=== PATIENT | male | born 1960 | race American Indian/Alaskan Native ===

== ENCOUNTER 2018-12-13 18:53 | Inpatient (IN) | payer SELFPAY ==
--- NOTE | 2018-12-13 20:14 | Emergency Department Report ---
ED Chest Pain HPI - General Chief Complaint: Chest Pain Stated Complaint: CHEST PAIN Time Seen by Provider: 12/13/18 19:31 Source: EMS Mode of arrival: Stretcher Limitations: No Limitations - History of Present Illness Initial Comments: 58-year-old male with history of CAD with 2 stents presents to ED with chest pain since earlier today. Patient reports onset of pain while reading. States pain is radiating into the right arm with associated nausea, diaphoresis, shortness of breath. Patient states he is from [place] and recently came to [place] a few days ago. [facility] has no physicians here. Patient reports that he is on a blood thinner, however he does not know the name of it, and there are no blood thinners in his bag of medications. Patient states pain feels like a hammer, rates it 9 out of 10, however patient appears very comfortable, nontoxic. -: This morning Onset: during rest Pain Location: substernal Pain Radiation: RUE Severity: moderate Severity scale (0 -10): 9 Quality: other ("like a hammer") Consistency: constant Improves With: nothing Worsens With: nothing re: nausea, vomting, diaphoresis, dyspnea Other Symptoms: denies: cough, fever, leg swelling Treatments Prior to Arrival: none - Related Data Home Medications Medication Instructions Recorded Confirmed Last Taken FLUoxetine [PROzac] 10 mg PO QDAY 12/13/18 12/13/18 Unknown Lisinopril [Zestril] 40 mg PO DAILY 12/13/18 12/13/18 Unknown Pravastatin [Pravachol] 20 mg PO DAILY 12/13/18 12/13/18 Unknown guaiFENesin [Mucinex] 600 mg PO PRN PRN 12/13/18 12/13/18 Unknown traZODone [Desyrel] 50 mg PO QHS 12/13/18 12/13/18 Unknown Allergies Allergy/AdvReac Type Severity Reaction Status Date / Time aspirin Allergy Itching Verified 12/13/18 20:08 Heart Score - HEART Score History: Slightly suspicious EKG: Normal Age: 45-65 Risk factors: > 3 risk factors or hx of atherosclerotic disease Troponin: < normal limit HEART Score: 3 ED Review of Systems ROS: Stated complaint: CHEST PAIN Other details as noted in HPI Comment: All other systems reviewed and negative Respiratory: shortness of breath. denies: cough Cardiovascular: chest pain Gastrointestinal: nausea ED Past Medical Hx - Past Medical History Previous Medical History?: Yes Hx Heart Attack/AMI: Yes (SD with 2 stents) Additional medical history: Parkinson - Surgical History Past Surgical History?: Yes Additional Surgical History: two stents, tonsilectomy - Social History Smoking Status: Never Smoker Substance Use Type: None - Medications Home Medications: Home Medications Medication Instructions Recorded Confirmed Last Taken Type FLUoxetine [PROzac] 10 mg PO QDAY 12/13/18 12/13/18 Unknown History Lisinopril [Zestril] 40 mg PO DAILY 12/13/18 12/13/18 Unknown History Pravastatin [Pravachol] 20 mg PO DAILY 12/13/18 12/13/18 Unknown History guaiFENesin [Mucinex] 600 mg PO PRN PRN 12/13/18 12/13/18 Unknown History traZODone [Desyrel] 50 mg PO QHS 12/13/18 12/13/18 Unknown History ED Physical Exam - General Limitations: No Limitations General appearance: alert, in no apparent distress - Head Head exam: Present: atraumatic, normocephalic - Eye Eye exam: Present: normal appearance - ENT ENT exam: Present: mucous membranes moist - Neck Neck exam: Present: normal inspection - Respiratory Respiratory exam: Present: normal lung sounds bilaterally. Absent: respiratory distress - Cardiovascular Cardiovascular Exam: Present: regular rate, normal rhythm - GI/Abdominal GI/Abdominal exam: Present: soft. Absent: distended, tenderness - Extremities Exam Extremities exam: Present: normal inspection - Neurological Exam Neurological exam: Present: alert, oriented X3 - Psychiatric Psychiatric exam: Present: normal affect, normal mood - Skin Skin exam: Present: warm, dry, intact, normal color ED Course Vital Signs 12/13/18 12/13/18 12/13/18 19:45 20:00 21:00 Temperature 98.6 F Pulse Rate 60 63 54 L Respiratory 15 15 15 Rate Blood Pressure 126/78 139/88 Blood Pressure 126/78 [Left] O2 Sat by Pulse 98 98 99 Oximetry 12/13/18 12/13/18 21:43 22:00 Temperature Pulse Rate 58 L 62 Respiratory 21 Rate Blood Pressure 139/88 145/97 Blood Pressure [Left] O2 Sat by Pulse 98 Oximetry ED Medical Decision Making - Lab Data Result diagrams: 12/13/18 20:24 12/13/18 20:24 - EKG Data -: EKG Interpreted by [place] EKG shows normal: sinus rhythm, axis, intervals, QRS complexes, ST-T waves Rate: bradycardia (rate 56) - EKG Data Interpretation: no acute changes - Radiology Data Radiology results: report reviewed, image reviewed CXR results faxed: no acute process Reports not crossing over into [employer] - Medical Decision Making 58-year-old male with history of coronary artery disease with 2 stents presents with chest pain 1 day. EKG normal, troponin normal. Unable to give aspirin due to allergy. Patient given nitroglycerin sublingual. Chest pain improved. Patient has no physicians here as he is new to the city. Will admit to hospitalist, Dr. Holly, for further workup. Bridge orders placed at request of the hospitalist. - Differential Diagnosis ACS, pneumonia, chest wall pain Critical care attestation.: If time is entered above; I have spent that time in minutes in the direct care of this critically ill patient, excluding procedure time. ED Disposition Clinical Impression: Chest pain Disposition: OP ADMIT IP TO THIS HOSP Is pt being admited?: Yes Condition: Stable Instructions: Chest Pain (ED) Referrals: SAMIA DIAZ MD [Primary Care Provider] - 3-5 Days Time of Disposition: 22:26
[2018-12-13 20:42] LABS: Basophils # (Auto) 0.1 K/mm3 (0.0-0.1); Basophils % (Auto) 1.2 % (0.0-1.8); Eosinophils # (Auto) 0.3 K/mm3 (0.0-0.4); Eosinophils % (Auto) 4.1 % (0.0-4.3); Hematocrit 42.7 % (35.5-45.6); Hemoglobin 13.8 gm/dl (11.8-15.2); Lymphocytes # (Auto) 1.9 K/mm3 (1.2-5.4); Mean Corpuscular HGB Conc 32 % (32-34); Mean Corpuscular Volume 83 fl (84-94); Monocytes # (Auto) 0.5 K/mm3 (0.0-0.8); Platelet Count 383 K/mm3 (140-440); Red Blood Count 5.15 M/mm3 (3.65-5.03); Red Cell Distribution Width 15.3 % (13.2-15.2)
[2018-12-13 20:53] LABS: INR 1.12 (0.87-1.13); Partial Thromboplastin Time 24.5 Sec. (24.2-36.6)
[2018-12-13 21:10] LABS: BUN/Creatinine Ratio 13; Blood Urea Nitrogen 14 mg/dL (9-20); Calcium 9.2 mg/dL (8.4-10.2); Hemolysis Index 11
[2018-12-13] MEDS ORDERED: NITROSTAT SL ONE (21:23)
[2018-12-13] MEDS ORDERED: ZOFRAN IV PRN (23:04)
[2018-12-13] MEDS ORDERED: MORPHINE IV PRN (23:04)
[2018-12-13] MEDS ORDERED: NITROSTAT SL PRN (23:06)
[2018-12-13] MEDS ORDERED: NITRO-BID 2% TP SCH (23:45)
[2018-12-14] MEDS ORDERED: HEPARIN ONE (00:05)
[2018-12-14] MEDS ORDERED: NITRO-BID 2% TP ONE (00:06)
[2018-12-14] MEDS: NITRO-BID 2% TP SCH ×2 (00:09→06:47)
[2018-12-14] MEDS: HEPARIN SUB-Q SCH ×3 (00:09→23:54)
--- NOTE | 2018-12-14 04:13 | History and Physical Report ---
CHIEF COMPLAINT: Chest pain. HISTORY OF PRESENT ILLNESS: The patient is a 58-year-old male with history of coronary artery disease, presenting with chest pain going on for some hours prior to presentation. Pain started while the patient was reading and pain radiates to the right arm and was associated with shortness of breath, nausea, vomiting, dizziness and diaphoresis. The patient described the pain as moderately tense and pressure-like in quality and consistent. Pain is not affected by movement or breathing. There are no symptoms of cough or fever. PAST MEDICAL HISTORY: Pertinent for coronary artery disease, status post myocardial infarction. Also, the patient has a past history of Parkinson's disease and past surgical history is pertinent for coronary stent placement x2 and tonsillectomy, hypercholesterolemia and depression. FAMILY HISTORY: Pertinent for coronary artery disease in the mother. SOCIAL HISTORY: The patient does not smoke, does not drink alcohol and does not use illicit drugs. MEDICATIONS: The patient is on lisinopril 40 mg daily, pravastatin 20 mg daily, Mucinex 600 mg by mouth every 12 hours as needed for cough, trazodone 50 mg at bedtime for insomnia, Prozac 10 mg by mouth daily. ALLERGIES: THE PATIENT IS ALLERGIC TO ASPIRIN. REVIEW OF SYSTEMS: CONSTITUTIONAL: There is no fever, no chills. Diaphoresis present. HEENT: There is no headache. No sore throat. CARDIOVASCULAR SYSTEM: There is chest pain, but no orthopnea. RESPIRATORY SYSTEM: There is shortness of breath, but no cough. GASTROINTESTINAL SYSTEM: There is nausea, vomiting. No abdominal pain, no diarrhea or constipation. NEUROLOGICAL SYSTEM: Dizziness present. No altered mental status. MUSCULOSKELETAL SYSTEM: There is no joint pain or swelling. DERMATOLOGICAL SYSTEM: There is no skin rash or itching. GENITOURINARY SYSTEM: There is no dysuria, hematuria or flank pain. Rest of system review is normal. PHYSICAL EXAMINATION: GENERAL: At the time of exam, the patient was found to be alert, oriented x 3 and not in acute distress. VITAL SIGNS: Vital signs at the initial time of presentation shows temperature of 98.6 degrees Fahrenheit, pulse of 60, respirations 15, blood pressure 126/78, O2 sat of 98% on room air. HEENT: Pupils to be equal, round, reactive to light and accommodating. Extraocular muscles are intact. NECK: Supple with no JVD or carotid bruit. CARDIOVASCULAR: Show normal first and second heart sounds with no gallops or murmurs. RESPIRATORY SYSTEM: Show good air entry on both sides of the lung with no abnormal breath sounds. GASTROINTESTINAL SYSTEM: Show abdomen to be full, soft, nontender with no organomegaly or rigidity. Bowel sound is normal. NEUROLOGICAL SYSTEM: Shows no focal deficit. MUSCULOSKELETAL SYSTEM: Show no joint swelling or tenderness. DERMATOLOGICAL SYSTEM: Show no skin rash. GENITOURINARY SYSTEM: Showing no costovertebral angle tenderness. PERTINENT LABORATORY AND IMAGING STUDIES: The patient had chest x-ray done that shows no acute cardiopulmonary lesion and the patient lab results shows CBC with normal white count, normal hemoglobin and normal hematocrit with CBC differential showing high monocyte count of 8%. The patient's coagulation studies were unremarkable and chemistry was unremarkable. Cardiac enzymes, troponin came back unremarkable. DIAGNOSES: Chest pain, rule out myocardial infarction. PLAN OF ACTION: 1. The patient will be admitted to telemetry. 2. The patient will have cardiac enzymes involving troponin, total CK and CK-MB checked every 6 hours serially x 2 doses. 3. The patient will be n.p.o. and will have Lexiscan stress test done this morning. 4. The patient will be on morphine 2 mg IV every 5 minutes as needed for pain and nitro paste 1 inch to anterior chest wall q. 6 hours. 5. The patient will be on sublingual nitroglycerin 0.4 mg every 5 minutes as needed for pain and will be on IV Zofran 4 mg every 8 hours as needed for nausea and vomiting. 6. The patient will be on Tylenol 650 mg by mouth every 4 hours for fever and headache and will be on heparin 5000 units subcutaneous q. 12 hours for DVT prophylaxis. 7. The patient will be on oxygen by nasal cannula at 2 liter per minute. 8. The patient will remain n.p.o. for Lexiscan stress test this morning. JOB# [id number] OCN/NTS
[2018-12-14 06:57] LABS: Creatine Kinase MB 1.9 ng/mL (0.0-4.0)
[2018-12-14] MEDS ORDERED: LEXISCAN IV ONE ×2 (08:08→08:28)
[2018-12-14] MEDS ORDERED: ZESTRIL PO SCH (10:00)
[2018-12-14] MEDS ORDERED: NITRO-BID 2% TP SCH (10:00)
--- NOTE | 2018-12-14 11:54 | Consultation ---
History of Present Illness Consult date: 12/14/18 Consult reason: chest pain History of present illness: 58 year old male presenting with chest pain radiating to the right arm associated with shortness of breath, nausea, diaphoresis. Pain is pressure like. Pain is non-exertional. History of PCI in [place] in the setting of [place]. No follow-up in [place] Past History Past Medical History: CAD, hyperlipidemia, other (Parkinson disease, depression) Past Surgical History: tonsillectomy, PTCA Social history: no significant social history Family history: CAD Medications and Allergies Allergies Allergy/AdvReac Type Severity Reaction Status Date / Time aspirin Allergy Itching Verified 12/13/18 20:08 Home Medications Medication Instructions Recorded Confirmed Last Taken Type FLUoxetine [PROzac] 10 mg PO QDAY 12/13/18 12/13/18 Unknown History Lisinopril [Zestril] 40 mg PO DAILY 12/13/18 12/13/18 Unknown History Pravastatin [Pravachol] 20 mg PO DAILY 12/13/18 12/13/18 Unknown History guaiFENesin [Mucinex] 600 mg PO PRN PRN 12/13/18 12/13/18 Unknown History traZODone [Desyrel] 50 mg PO QHS 12/13/18 12/13/18 Unknown History Active Meds: Active Medications Acetaminophen (Tylenol) 650 mg PO Q4H PRN PRN Reason: Headache Fluoxetine HCl (Prozac) 10 mg PO QDAY [facility] Heparin Sodium (Porcine) (Heparin) 5,000 unit SUB-Q Q12H [facility] Last Admin: 12/14/18 00:09 Dose: 5,000 unit Documented by: Lisinopril (Zestril) 40 mg PO DAILY [facility] Morphine Sulfate (Morphine) 2 mg IV Q5MIN PRN PRN Reason: Chest Pain unrelieved by NTG Nitroglycerin (Nitrostat) 0.4 mg SL .Q5MIN PRN PRN Reason: Chest Pain Nitroglycerin (Nitro-Bid 2%) 1 inch TP QIDNTG [facility]; Protocol Ondansetron HCl (Zofran) 4 mg IV Q8H PRN PRN Reason: Nausea And Vomiting Pravastatin Sodium (Pravachol) 20 mg PO QHS [facility] Trazodone HCl (Desyrel) 50 mg PO QHS [facility] Review of Systems All systems: negative Physical Examination Vital Signs Temp Pulse Resp BP Pulse Ox 98.6 F 60 15 126/78 98 12/13/18 19:45 12/13/18 19:45 12/13/18 19:45 12/13/18 19:45 12/13/18 19:45 General appearance: no acute distress HEENT: Positive: PERRL Neck: Positive: neck supple Cardiac: Positive: Reg Rate and Rhythm Lungs: Positive: Normal Exam Neuro: Positive: Grossly Intact Abdomen: Positive: Soft Extremities: Present: normal Results 12/13/18 20:24 12/13/18 20:24 Cardiac Enzymes 12/14/18 12/14/18 Range/Units 03:43 06:04 CK-MB (CK-2) 2.0 1.9 (0.0-4.0) ng/mL Coagulation 12/13/18 Range/Units 20:24 PT 15.1 H (12.2-14.9) Sec. INR 1.12 (0.87-1.13) APTT 24.5 (24.2-36.6) Sec. CBC 12/13/18 Range/Units 20:24 WBC 6.4 (4.5-11.0) K/mm3 RBC 5.15 H (3.65-5.03) M/mm3 Hgb 13.8 (11.8-15.2) gm/dl Hct 42.7 (35.5-45.6) % Plt Count 383 (140-440) K/mm3 Lymph # 1.9 (1.2-5.4) K/mm3 [place] # 0.5 (0.0-0.8) K/mm3 Eos # 0.3 (0.0-0.4) K/mm3 Baso # 0.1 (0.0-0.1) K/mm3 Comprehensive Metabolic Panel 12/13/18 Range/Units 20:24 Sodium 145 (137-145) mmol/L Potassium 4.2 (3.6-5.0) mmol/L Chloride 105.9 (98-107) mmol/L Carbon Dioxide 31 H (22-30) mmol/L BUN 14 (9-20) mg/dL Creatinine 1.1 (0.8-1.5) mg/dL Glucose 98 (75-100) mg/dL Calcium 9.2 (8.4-10.2) mg/dL - EKG Interpretation EKG: sinus rhythm EKG interpretations - Telemetry EKG Rhythm: Sinus Rhythm Assessment and Plan Chest Pain Abnormal MPI revealing a reverisble mid anteroseptal wall defect suggesting LAD ischemia Troponin negative CAD s/p PCI in [place] after [place] Hyperlipidemia Systemic Hypertension Recommendations: Plavix loading (patient allergic to aspirin) High intensity statins Anti-anginal therapy Coronary angio on sunday
[2018-12-14] MEDS: PLAVIX PO ONE ×2 (12:00→20:45)
--- NOTE | 2018-12-14 12:02 | Treadmill Report ---
INDICATION: Chest pain. ORDERING PHYSICIAN: Billy Holly MD FINDINGS: There is evidence of a small mildly reversible mid anteroseptal wall defect suggesting ischemia in the LAD distribution. The left ventricular ejection fraction is measured at 53%. There is normal wall motion, yet there is decreased uptake in the mid anteroseptal wall, also noted on gated imaging. CONCLUSION: 1. Abnormal myocardial perfusion scan. 2. Small mildly reversible mid anteroseptal wall defect suggesting ischemia in the LAD distribution. 3. Normal left ventricular size and systolic function with an ejection fraction measured at 53%. Clinical correlation recommended. JOB# [id number] MEÑO/CHUCHO
[2018-12-14 12:57] LABS: Alanine Aminotransferase 16 units/L (7-56); Albumin 4.3 g/dL (3.9-5); BUN/Creatinine Ratio 10; Blood Urea Nitrogen 11 mg/dL (9-20); Calcium 9.1 mg/dL (8.4-10.2); Hemolysis Index 27
[2018-12-14] MEDS: IMDUR PO SCH (14:30)
[2018-12-14] MEDS: NORVASC PO SCH (14:30)
[2018-12-14] MEDS: PROzac PO SCH (14:30)
[2018-12-14] MEDS: ZESTRIL PO SCH (14:31)
--- NOTE | 2018-12-14 15:05 | Progress Note ---
Assessment and Plan Assessment and plan: Chest pain - Cardiac enzymes were negative - Stress test abnormal - Cardiology consulted and recommended anti ischemic medications and will do cardiac cath on sunday Bipolar disorder, depression - Continue home medication Suicidal ideation - I put the patient on 101 - Mental health consulted DVT prophylaxis - On heparin Disposition - Continue inpatient care. History Interval history: Patient was seen and evaluated this morning, patient was advised and oriented, no chest pain during the examination. Patient said he is feeling depressed, he told the nurse and the mental health green material value added assessor that he is thinking of hurting himself. Hospitalist Physical - Physical exam Narrative exam: Not in cardiopulmonary distress. The patient appeared well nourished and normally developed. Vital signs as documented. Head exam is unremarkable. No scleral icterus . Neck is without jugular venous distension, thyromegaly, or carotid bruits. Lungs are clear to auscultation. Cardiac exam reveals regular rate and Rhythm. First and second heart sounds normal. No murmurs, rubs or gallops. Abdominal exam reveals normal bowel sounds, no masses, no organomegaly and no aortic enlargement. Extremities are nonedematous and both femoral and pedal pulses are normal. THERMAL INTELLIGENCE ANALYST: Alert and oriented 3. No focal weakness. - Constitutional Vitals: Temp Pulse Resp BP Pulse Ox 98.0 F 55 L 18 140/95 100 12/14/18 12:41 12/14/18 12:41 12/14/18 12:41 12/14/18 12:41 12/14/18 12:41 General appearance: Present: no acute distress Results - Labs CBC & Chem 7: 12/13/18 20:24 12/14/18 12:13 Labs: Laboratory Last Values WBC 6.4 K/mm3 (4.5-11.0) 12/13/18 20:24 RBC 5.15 M/mm3 (3.65-5.03) H 12/13/18 20:24 Hgb 13.8 gm/dl (11.8-15.2) 12/13/18 20:24 Hct 42.7 % (35.5-45.6) 12/13/18 20:24 MCV 83 fl (84-94) L 12/13/18 20:24 MCH 27 pg (28-32) L 12/13/18 20:24 MCHC 32 % (32-34) 12/13/18 20:24 RDW 15.3 % (13.2-15.2) H 12/13/18 20:24 Plt Count 383 K/mm3 (140-440) 12/13/18 20:24 Lymph % (Auto) 30.0 % (13.4-35.0) 12/13/18 20:24 [place] % (Auto) 8.0 % (0.0-7.3) H 12/13/18 20:24 Eos % (Auto) 4.1 % (0.0-4.3) 12/13/18 20:24 Baso % (Auto) 1.2 % (0.0-1.8) 12/13/18 20:24 Lymph # 1.9 K/mm3 (1.2-5.4) 12/13/18 20:24 [place] # 0.5 K/mm3 (0.0-0.8) 12/13/18 20:24 Eos # 0.3 K/mm3 (0.0-0.4) 12/13/18 20:24 Baso # 0.1 K/mm3 (0.0-0.1) 12/13/18 20:24 Seg Neutrophils % 56.7 % (40.0-70.0) 12/13/18 20:24 Seg Neutrophils # 3.6 K/mm3 (1.8-7.7) 12/13/18 20:24 PT 15.1 Sec. (12.2-14.9) H 12/13/18 20:24 INR 1.12 (0.87-1.13) 12/13/18 20:24 APTT 24.5 Sec. (24.2-36.6) 12/13/18 20:24 Sodium 142 mmol/L (137-145) 12/14/18 12:13 Potassium 4.4 mmol/L (3.6-5.0) 12/14/18 12:13 Chloride 102.3 mmol/L (98-107) 12/14/18 12:13 Carbon Dioxide 29 mmol/L (22-30) 12/14/18 12:13 Anion Gap 15 mmol/L 12/14/18 12:13 BUN 11 mg/dL (9-20) 12/14/18 12:13 Creatinine 1.1 mg/dL (0.8-1.5) 12/14/18 12:13 Estimated GFR > 60 ml/min 12/14/18 12:13 BUN/Creatinine Ratio 10 % 12/14/18 12:13 Glucose 83 mg/dL (75-100) 12/14/18 12:13 Calcium 9.1 mg/dL (8.4-10.2) 12/14/18 12:13 Total Bilirubin 0.40 mg/dL (0.1-1.2) 12/14/18 12:13 AST 19 units/L (5-40) 12/14/18 12:13 ALT 16 units/L (7-56) 12/14/18 12:13 Alkaline Phosphatase 37 units/L (35-129) 12/14/18 12:13 Total Creatine Kinase 86 units/L (55-170) 12/14/18 06:04 CK-MB (CK-2) 1.9 ng/mL (0.0-4.0) 12/14/18 06:04 CK-MB (CK-2) Rel Index 2.2 (0-4) 12/14/18 06:04 Troponin T < 0.010 ng/mL (0.00-0.029) 12/14/18 06:04 Total Protein 7.3 g/dL (6.3-8.2) 12/14/18 12:13 Albumin 4.3 g/dL (3.9-5) 12/14/18 12:13 Albumin/Globulin Ratio 1.4 % 12/14/18 12:13
[2018-12-14] MEDS: DESYREL PO SCH (21:46)
[2018-12-14] MEDS ORDERED: PRAVACHOL PO SCH (22:00)
[2018-12-15] MEDS: HEPARIN SUB-Q SCH ×2 (05:46→17:22)
--- NOTE | 2018-12-15 09:28 | Progress Note ---
Assessment and Plan Chest Pain Abnormal MPI revealing a reverisble mid anteroseptal wall defect suggesting LAD ischemia Troponin negative CAD s/p PCI in [place] after [place] Hyperlipidemia Systemic Hypertension Depression and suicidal ideation Recommendations: Coronary angio on sunday Subjective Date of service: 12/15/18 Principal diagnosis: Chest Pain Interval history: No cardiac events overnight Objective Vital Signs Temp Pulse Pulse Resp BP BP Pulse Ox 12/15/18 08:19 98.3 F 47 L 16 92/51 98 12/15/18 05:00 97.9 F 56 L 16 126/76 99 12/14/18 23:45 98.1 F 50 L 12 91/56 99 12/14/18 20:29 63 12/14/18 20:15 80 18 12/14/18 18:56 98.4 F 63 18 109/70 96 12/14/18 12:41 98.0 F 55 L 18 140/95 100 12/14/18 12:00 58 L 12/14/18 11:34 100 12/14/18 10:16 136/91 12/14/18 10:15 133/91 12/14/18 10:13 130/87 12/14/18 10:12 120/86 12/14/18 10:10 142/93 12/14/18 10:01 137/97 12/14/18 10:00 80 18 - Physical Examination HEENT: Positive: PERRL Neck: Positive: neck supple Cardiac: Positive: Reg Rate and Rhythm Lungs: Positive: Normal Exam Neuro: Positive: Grossly Intact Abdomen: Positive: Soft Extremities: Present: normal - Labs and Meds Cardiac Enzymes 12/14/18 Range/Units 12:13 AST 19 (5-40) units/L Comprehensive Metabolic Panel 12/14/18 Range/Units 12:13 Sodium 142 (137-145) mmol/L Potassium 4.4 (3.6-5.0) mmol/L Chloride 102.3 (98-107) mmol/L Carbon Dioxide 29 (22-30) mmol/L BUN 11 (9-20) mg/dL Creatinine 1.1 (0.8-1.5) mg/dL Glucose 83 (75-100) mg/dL Calcium 9.1 (8.4-10.2) mg/dL AST 19 (5-40) units/L ALT 16 (7-56) units/L Alkaline Phosphatase 37 (35-129) units/L Total Protein 7.3 (6.3-8.2) g/dL Albumin 4.3 (3.9-5) g/dL
[2018-12-15] MEDS: IMDUR PO SCH (09:42)
[2018-12-15] MEDS: ZESTRIL PO SCH (09:42)
[2018-12-15] MEDS: NORVASC PO SCH (09:42)
[2018-12-15] MEDS: TYLENOL PO PRN (10:06)
[2018-12-15] MEDS: PLAVIX PO SCH (10:06)
[2018-12-15] MEDS: PROzac PO SCH (10:26)
--- NOTE | 2018-12-15 11:54 | Progress Note ---
Assessment and Plan Assessment and plan: Chest pain - Cardiac enzymes were negative - Stress test abnormal - Cardiology consulted and recommended anti ischemic medications and will do cardiac cath on sunday - Isosorbide and lisinopril was not given because BP was low Bipolar disorder, depression - Continue home medication Suicidal ideation - I put the patient on 1013 - Mental health consulted DVT prophylaxis Disposition - Continue inpatient care. History Interval history: Patient was seen and evaluated this morning, patient was advised and oriented, no chest pain during the examination. Patient said he is feeling depressed, and has suicidal ideations. Hospitalist Physical - Physical exam Narrative exam: Not in cardiopulmonary distress. The patient appeared well nourished and normally developed. Vital signs as documented. Head exam is unremarkable. No scleral icterus . Neck is without jugular venous distension, thyromegaly, or carotid bruits. Lungs are clear to auscultation. Cardiac exam reveals regular rate and Rhythm. First and second heart sounds normal. No murmurs, rubs or gallops. Abdominal exam reveals normal bowel sounds, no masses, no organomegaly and no aortic enlargement. Extremities are nonedematous and both femoral and pedal pulses are normal. GI TECHNICIAN: Alert and oriented 3. No focal weakness. - Constitutional Vitals: Temp Pulse Resp BP Pulse Ox 98.3 F 47 L 16 92/52 98 12/15/18 08:19 12/15/18 10:00 12/15/18 10:00 12/15/18 09:42 12/15/18 08:19 General appearance: Present: no acute distress Results - Labs CBC & Chem 7: 12/13/18 20:24 12/14/18 12:13 Labs: Laboratory Last Values WBC 6.4 K/mm3 (4.5-11.0) 12/13/18 20:24 RBC 5.15 M/mm3 (3.65-5.03) H 12/13/18 20:24 Hgb 13.8 gm/dl (11.8-15.2) 12/13/18 20:24 Hct 42.7 % (35.5-45.6) 12/13/18 20:24 MCV 83 fl (84-94) L 12/13/18 20:24 MCH 27 pg (28-32) L 12/13/18 20:24 MCHC 32 % (32-34) 12/13/18 20:24 RDW 15.3 % (13.2-15.2) H 12/13/18 20:24 Plt Count 383 K/mm3 (140-440) 12/13/18 20:24 Lymph % (Auto) 30.0 % (13.4-35.0) 12/13/18 20:24 [place] % (Auto) 8.0 % (0.0-7.3) H 12/13/18 20:24 Eos % (Auto) 4.1 % (0.0-4.3) 12/13/18 20:24 Baso % (Auto) 1.2 % (0.0-1.8) 12/13/18 20:24 Lymph # 1.9 K/mm3 (1.2-5.4) 12/13/18 20:24 [place] # 0.5 K/mm3 (0.0-0.8) 12/13/18 20:24 Eos # 0.3 K/mm3 (0.0-0.4) 12/13/18 20:24 Baso # 0.1 K/mm3 (0.0-0.1) 12/13/18 20:24 Seg Neutrophils % 56.7 % (40.0-70.0) 12/13/18 20:24 Seg Neutrophils # 3.6 K/mm3 (1.8-7.7) 12/13/18 20:24 PT 15.1 Sec. (12.2-14.9) H 12/13/18 20:24 INR 1.12 (0.87-1.13) 12/13/18 20:24 APTT 24.5 Sec. (24.2-36.6) 12/13/18 20:24 Sodium 142 mmol/L (137-145) 12/14/18 12:13 Potassium 4.4 mmol/L (3.6-5.0) 12/14/18 12:13 Chloride 102.3 mmol/L (98-107) 12/14/18 12:13 Carbon Dioxide 29 mmol/L (22-30) 12/14/18 12:13 Anion Gap 15 mmol/L 12/14/18 12:13 BUN 11 mg/dL (9-20) 12/14/18 12:13 Creatinine 1.1 mg/dL (0.8-1.5) 12/14/18 12:13 Estimated GFR > 60 ml/min 12/14/18 12:13 BUN/Creatinine Ratio 10 % 12/14/18 12:13 Glucose 83 mg/dL (75-100) 12/14/18 12:13 Calcium 9.1 mg/dL (8.4-10.2) 12/14/18 12:13 Total Bilirubin 0.40 mg/dL (0.1-1.2) 12/14/18 12:13 AST 19 units/L (5-40) 12/14/18 12:13 ALT 16 units/L (7-56) 12/14/18 12:13 Alkaline Phosphatase 37 units/L (35-129) 12/14/18 12:13 Total Creatine Kinase 86 units/L (55-170) 12/14/18 06:04 CK-MB (CK-2) 1.9 ng/mL (0.0-4.0) 12/14/18 06:04 CK-MB (CK-2) Rel Index 2.2 (0-4) 12/14/18 06:04 Troponin T < 0.010 ng/mL (0.00-0.029) 12/14/18 06:04 Total Protein 7.3 g/dL (6.3-8.2) 12/14/18 12:13 Albumin 4.3 g/dL (3.9-5) 12/14/18 12:13 Albumin/Globulin Ratio 1.4 % 12/14/18 12:13
[2018-12-15 14:39] LABS: BUN/Creatinine Ratio 11; Blood Urea Nitrogen 12 mg/dL (9-20); Calcium 8.8 mg/dL (8.4-10.2); Chol/HDL Ratio 3.84 %; HDL Cholesterol 32 mg/dL (40-59); Hemolysis Index 4; LDL Cholesterol,Direct 73 mg/dL (50-130)
[2018-12-15] MEDS ORDERED: APRESOLINE IV PRN (21:55)
[2018-12-15] MEDS: DESYREL PO SCH (23:23)
[2018-12-16] MEDS: HEPARIN SUB-Q SCH ×2 (05:29→17:25)
[2018-12-16 06:18] LABS: INR 1.12 (0.87-1.13)
[2018-12-16 06:30] LABS: BUN/Creatinine Ratio 8; Blood Urea Nitrogen 10 mg/dL (9-20); Calcium 8.5 mg/dL (8.4-10.2); Hemolysis Index 3
[2018-12-16] MEDS: PLAVIX PO SCH (09:58)
[2018-12-16] MEDS: IMDUR PO SCH (12:55)
[2018-12-16] MEDS: ZESTRIL PO SCH (12:56)
[2018-12-16] MEDS: NORVASC PO SCH (12:56)
[2018-12-16] MEDS ORDERED: HEPARIN/NS 5000 UNIT/500ML(CATH LAB) 1,000 ML IR ONE (13:15)
[2018-12-16] MEDS ORDERED: NITROGLYCERIN SYRINGE 0 ML ONE (13:15)
[2018-12-16] MEDS ORDERED: CALAN ONE (13:15)
[2018-12-16] MEDS ORDERED: HEPARIN 10,000 UNITS/10 ML ONE (13:15)
--- NOTE | 2018-12-16 13:16 | Consultation ---
Addendum entered and electronically signed by ANDERSON RODRIGUEZ NP 12/17/18 13:36: Correction - Recommendation/Plan: Discussed possible suicidality/medication induced danielle with the patient reference Ioana. Original Note: History of Present Illness - Reason for Consult Consult date: 12/16/18 Reason for consult: Mental Health Evaluation Requesting physician: ISABELL CHRISTINA - Chief Complaint Chief complaint: "I have no reason to live" - History of Present Psychiatric Illness 58-year-old AA male who presented to the ER fro chest pain. Psychiatry was consu lted to see the patient for SI's. Today the patient is calm and cooperative during the assessment. He stated that his and daughter last year months apart. Also, he stated that he was dx with Parkinson's recently. He stated that he try to support his father who has several medical issues. He stated that life isn't important now. He stated that the things he's dealing with now are "unbearable." He stated that he attempted suicide last year by overdosing on pills after his daughter . He rate his depression 8/10, with 10 being the worse. He denies HI's and AVH's. He denies a poor appetite, but acknowledged erratic sleep. He denies recreational drug use and alcohol consumption. He stated that he experienced an unusual erection recently. The patient takes Trazodone. Medications and Allergies Allergies Allergy/AdvReac Type Severity Reaction Status Date / Time aspirin Allergy Itching Verified 12/13/18 20:08 Home Medications Medication Instructions Recorded Confirmed Last Taken Type FLUoxetine [PROzac] 10 mg PO QDAY 12/13/18 12/13/18 Unknown History Lisinopril [Zestril] 40 mg PO DAILY 12/13/18 12/13/18 Unknown History Pravastatin [Pravachol] 20 mg PO DAILY 12/13/18 12/13/18 Unknown History guaiFENesin [Mucinex] 600 mg PO PRN PRN 12/13/18 12/13/18 Unknown History traZODone [Desyrel] 50 mg PO QHS 12/13/18 12/13/18 Unknown History Active Meds: Active Medications Acetaminophen (Tylenol) 650 mg PO Q4H PRN PRN Reason: Headache Last Admin: 12/15/18 10:06 Dose: 650 mg Documented by: Amlodipine Besylate (Norvasc) 2.5 mg PO QDAY [facility] Last Admin: 12/16/18 12:56 Dose: Not Given Documented by: Atorvastatin Calcium (Lipitor) 40 mg PO QHS [facility] Last Admin: 12/15/18 23:23 Dose: 40 mg Documented by: Clopidogrel Bisulfate (Plavix) 75 mg PO QDAY [facility] Last Admin: 12/16/18 09:58 Dose: 75 mg Documented by: Fluoxetine HCl (Prozac) 10 mg PO QDAY [facility] Last Admin: 12/15/18 10:26 Dose: 10 mg Documented by: Heparin Sodium (Porcine) (Heparin) 5,000 unit SUB-Q Q12H [facility] Last Admin: 12/16/18 05:29 Dose: Not Given Documented by: Hydralazine HCl (Apresoline) 5 mg IV Q6HR PRN PRN Reason: Hypertension Sodium Chloride (Nacl 0.9% 500 Ml) 500 mls @ 50 mls/hr IV DIRECT [facility] Isosorbide Mononitrate (Imdur) 30 mg PO QDAY [facility] Last Admin: 12/16/18 12:55 Dose: Not Given Documented by: Lisinopril (Zestril) 20 mg PO DAILY [facility] Last Admin: 12/16/18 12:56 Dose: Not Given Documented by: Morphine Sulfate (Morphine) 2 mg IV Q5MIN PRN PRN Reason: Chest Pain unrelieved by NTG Nitroglycerin (Nitrostat) 0.4 mg SL .Q5MIN PRN PRN Reason: Chest Pain Ondansetron HCl (Zofran) 4 mg IV Q8H PRN PRN Reason: Nausea And Vomiting Past psychiatric history - Past Medical History Past Medical History: CAD, other (Parkinson's ) Past Surgical History: Other (Stents x 2) - past Psychiatric treatment and history psychiatric treatment history: Inpatient psy services in the past. Denies a fam psy hx. - Social History Social history: Lives alone Mental Status Exam - Vital signs Last Vital Signs Temp 98.4 F 12/16/18 08:42 Pulse 53 L 12/16/18 12:00 Resp 17 12/16/18 08:49 BP 123/89 12/16/18 08:42 Pulse Ox 100 12/16/18 08:42 - Exam Narrative exam: MSE: Appearance: calm, cooperative Behavior: regular eye contact Speech: regular rate and tone Mood: "depressed" Affect: congruent to mood Thought Process: circumstantial Thought Content: denies HI's and AVH's Motor Activity: sitting up in bed Cognition: A/O x 3 Insight: fair Judgment: poor Results Result Diagrams: 12/13/18 20:24 12/16/18 05:06 Abnormal lab results 12/15/18 12/16/18 12/16/18 Range/Units 13:48 05:06 05:06 PT 15.1 H (12.2-14.9) Sec. APTT 20.2 L (24.2-36.6) Sec. Carbon Dioxide (22-30) mmol/L Glucose 112 H (75-100) mg/dL Triglycerides 186 H (2-149) mg/dL HDL Cholesterol 32 L (40-59) mg/dL 12/16/18 Range/Units 05:06 PT (12.2-14.9) Sec. APTT (24.2-36.6) Sec. Carbon Dioxide 31 H (22-30) mmol/L Glucose (75-100) mg/dL Triglycerides (2-149) mg/dL HDL Cholesterol (40-59) mg/dL All other labs normal. Assessment and Plan Assessment and plan: Impression: MDD, Severe Type. Today the patient is calm and cooperative during the assessment. DDx: R/O Bipolar DO Recommendation/Plan: Continue 1013 and continue home medication Prozac 10 mg PO dally for depression and start Benadryl 25 mg PO HS for sleep.Trazodone D/C'd. Discussed possible suicidality/medication induced adnielle with the patient reference David. Dispo: The patient will be referred to inpatient psy services once medically clear. Staffed with Dr Ruby Parkih.
[2018-12-16] MEDS: VERSED ONE ×2 (13:38→13:46)
[2018-12-16] MEDS: SUBLIMAZE ONE ×2 (13:38→13:46)
[2018-12-16] MEDS: XYLOCAINE 2% INFILTRATI ONE ×2 (13:44→13:47)
[2018-12-16] MEDS ORDERED: NACL 0.9% 500 ML 500 ML IV SCH (14:00)
--- NOTE | 2018-12-16 14:14 | Event Note ---
Date: 12/16/18 Cardiac catheterization completed, no complications. Findings: Diffuse mild nonobstructive atherosclerosis. Normal left ventricle systolic function, ejection fraction 55-60%. Okay for cardiac discharge on medical therapy and risk factor modification. Notably, there was no evident coronary stents in either right or left coronary arteries, inconsistent with patient's history.
--- NOTE | 2018-12-16 14:17 | XRay Report ---
FINAL REPORT EXAM: XR CHEST 1V AP HISTORY: chest pain TECHNIQUE: AP portable view of the chest PRIORS: None. FINDINGS: Lines, tubes, and devices: N/A Lungs and pleura: Trachea is normal in position. Lungs are clear of infiltrate, pleural effusion, vas cular congestion, or pneumothorax. Cardiomediastinal silhouette: The aorta is unfolded, likely age related. Calcification of the arch is noted. 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 IMPRESSION: No acute cardiopulmonary process seen.
--- NOTE | 2018-12-16 14:38 | Progress Note ---
Assessment and Plan Assessment and plan: Chest pain - Cardiac enzymes were negative - Stress test abnormal - Cardiology consulted and did a cardiac cath showed nonobstructive atherosclerosis, no stent was seen - Cardiology cleared him for discharge Bipolar disorder, depression - Continue home medication Suicidal ideation - I put the patient on 1012 - Mental health consulted DVT prophylaxis Disposition -Patient insisted on 1012 -Discharge once cleared by psych. History Interval history: Patient was seen and evaluated this morning, patient was advised and oriented, no chest pain during the examination. Patient said he is feeling depressed, and has suicidal ideations. Hospitalist Physical - Physical exam Narrative exam: Not in cardiopulmonary distress. The patient appeared well nourished and normally developed. Vital signs as documented. Head exam is unremarkable. No scleral icterus . Neck is without jugular venous distension, thyromegaly, or carotid bruits. Lungs are clear to auscultation. Cardiac exam reveals regular rate and Rhythm. First and second heart sounds normal. No murmurs, rubs or gallops. Abdominal exam reveals normal bowel sounds, no masses, no organomegaly and no aortic enlargement. Extremities are nonedematous and both femoral and pedal pulses are normal. 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 No focal weakness. - Constitutional Vitals: Temp Pulse Resp BP Pulse Ox 98.4 F 53 L 17 123/89 100 12/16/18 08:42 12/16/18 12:00 12/16/18 08:49 12/16/18 08:42 12/16/18 08:42 General appearance: Present: no acute distress Results - Labs CBC & Chem 7: 12/13/18 20:24 12/16/18 05:06 Labs: Laboratory Last Values WBC 6.4 K/mm3 (4.5-11.0) 12/13/18 20:24 RBC 5.15 M/mm3 (3.65-5.03) H 12/13/18 20:24 Hgb 13.8 gm/dl (11.8-15.2) 12/13/18 20:24 Hct 42.7 % (35.5-45.6) 12/13/18 20:24 MCV 83 fl (84-94) L 12/13/18 20:24 MCH 27 pg (28-32) L 12/13/18 20:24 MCHC 32 % (32-34) 12/13/18 20:24 RDW 15.3 % (13.2-15.2) H 12/13/18 20:24 Plt Count 383 K/mm3 (140-440) 12/13/18 20:24 Lymph % (Auto) 30.0 % (13.4-35.0) 12/13/18 20:24 [place] % (Auto) 8.0 % (0.0-7.3) H 12/13/18 20:24 Eos % (Auto) 4.1 % (0.0-4.3) 12/13/18 20:24 Baso % (Auto) 1.2 % (0.0-1.8) 12/13/18 20:24 Lymph # 1.9 K/mm3 (1.2-5.4) 12/13/18 20:24 [place] # 0.5 K/mm3 (0.0-0.8) 12/13/18 20:24 Eos # 0.3 K/mm3 (0.0-0.4) 12/13/18 20:24 Baso # 0.1 K/mm3 (0.0-0.1) 12/13/18 20:24 Seg Neutrophils % 56.7 % (40.0-70.0) 12/13/18 20:24 Seg Neutrophils # 3.6 K/mm3 (1.8-7.7) 12/13/18 20:24 PT 15.1 Sec. (12.2-14.9) H 12/16/18 05:06 INR 1.12 (0.87-1.13) 12/16/18 05:06 APTT 20.2 Sec. (24.2-36.6) L 12/16/18 05:06 Sodium 143 mmol/L (137-145) 12/16/18 05:06 Potassium 4.1 mmol/L (3.6-5.0) 12/16/18 05:06 Chloride 104.0 mmol/L (98-107) 12/16/18 05:06 Carbon Dioxide 31 mmol/L (22-30) H 12/16/18 05:06 Anion Gap 12 mmol/L 12/16/18 05:06 BUN 10 mg/dL (9-20) 12/16/18 05:06 Creatinine 1.2 mg/dL (0.8-1.5) 12/16/18 05:06 Estimated GFR > 60 ml/min 12/16/18 05:06 BUN/Creatinine Ratio 8 % 12/16/18 05:06 Glucose 88 mg/dL (75-100) 12/16/18 05:06 POC Glucose 82 (70-105) 12/16/18 05:54 Calcium 8.5 mg/dL (8.4-10.2) 12/16/18 05:06 Total Bilirubin 0.40 mg/dL (0.1-1.2) 12/14/18 12:13 AST 19 units/L (5-40) 12/14/18 12:13 ALT 16 units/L (7-56) 12/14/18 12:13 Alkaline Phosphatase 37 units/L (35-129) 12/14/18 12:13 Total Creatine Kinase 86 units/L (55-170) 12/14/18 06:04 CK-MB (CK-2) 1.9 ng/mL (0.0-4.0) 12/14/18 06:04 CK-MB (CK-2) Rel Index 2.2 (0-4) 12/14/18 06:04 Troponin T < 0.010 ng/mL (0.00-0.029) 12/14/18 06:04 Total Protein 7.3 g/dL (6.3-8.2) 12/14/18 12:13 Albumin 4.3 g/dL (3.9-5) 12/14/18 12:13 Albumin/Globulin Ratio 1.4 % 12/14/18 12:13 Triglycerides 186 mg/dL (2-149) H 12/15/18 13:48 Cholesterol 123 mg/dL (50-199) 12/15/18 13:48 LDL Cholesterol Direct 73 mg/dL (50-130) 12/15/18 13:48 HDL Cholesterol 32 mg/dL (40-59) L 12/15/18 13:48 Cholesterol/HDL Ratio 3.84 % 12/15/18 13:48
[2018-12-16] MEDS: PROzac PO SCH (14:48)
[2018-12-16] MEDS ORDERED: NACL 0.9% 1000 ML 1,000 ML IV SCH (15:00)
--- NOTE | 2018-12-16 17:27 | Cardiac Catherization Report ---
CARDIAC CATHETERIZATION REASON FOR PROCEDURE: The patient is a 58-year-old man who presented to the hospital with chest pain. He also gives a history of previous coronary intervention while he lived in [place] several years ago; there are no clinical records with documentation of this event that is available at this time. He was recommended to undergo a cardiac catheterization. PROCEDURE: 1. Left heart catheterization. 2. Selective left and right coronary angiography. 3. Left ventricle angiography. 4. Sedation time start 13:46, end 14.05. The patient was prepped and draped in a sterile fashion after informed consent. The right femoral artery was entered using Seldinger technique followed by placement of a 6-[place]izen [place] sheath. Selective left and right coronary angiography was performed using a #4 left Swetha, and a #4 right Swetha. A pigtail catheter was used for left ventricle angiography. The catheters were then removed, sheath removed, and hemostasis achieved using an Angio-Seal device. The patient was returned to the post-procedure unit in stable condition. There were no complications. FINDINGS: HEMODYNAMICS: Left ventricle end diastolic pressure was 19, following coronary angiography. Ascending aortic pressure was 128/75. There was no significant pressure gradient on pullback across the aortic valve. CORONARY ANGIOGRAPHY: Left main coronary artery was without significant disease. Mild luminal irregularities of the proximal and mid LAD. The distal, apical segment of the LAD was notable for diffuse to moderately severe atherosclerosis. A large, proximal diagonal branch of the LAD contained mild diffuse irregularities. The circumflex artery contained diffuse mild atherosclerosis. The right coronary artery was dominant and similarly contained diffuse mild atherosclerosis. There were no evident severe lesions in either left or right coronary arteries. In addition, addition, there was no evident prior intracoronary stent that is evident in either left or right coronary arteries. There was normal left ventricular systolic function with ejection fraction of 55%. CONCLUSION: 1. Mild nonobstructive atherosclerosis as above. 2. No evident intracoronary stent is visible on fluoroscopy and angiography. 3. Normal left ventricular systolic function, ejection fraction 55-60%. RECOMMENDATION: Risk factor modification and medical therapy. JOB# [id number] CA/NTS
[2018-12-16] MEDS: BENADRYL PO SCH (21:59)
[2018-12-17] MEDS: HEPARIN SUB-Q SCH ×2 (06:19→17:35)
[2018-12-17] MEDS: ZESTRIL PO SCH (09:30)
[2018-12-17] MEDS: IMDUR PO SCH (09:30)
[2018-12-17] MEDS: PLAVIX PO SCH (09:30)
[2018-12-17] MEDS: NORVASC PO SCH (09:30)
[2018-12-17] MEDS: PROzac PO SCH (09:31)
--- NOTE | 2018-12-17 11:24 | Progress Note ---
Addendum entered and electronically signed by JENNIFFER GUNN MD 12/17/18 13:21: No further cardiac workup, continue medical therapy as previously outlined, okay for transfer to the psychiatric unit. Original Note: Assessment and Plan Chest pain, atypical Cardiac catheterization findings: Diffuse mild nonobstructive atherosclerosis. Normal left ventricle systolic function, ejection fraction 55-60%. Notably, there was no evident coronary stents in either right or left coronary arteries, inconsistent with patient's history. Hyperlipidemia Hypertension Depression No further cardiac workup indicated. We will follow intermittently. Subjective Date of service: 12/17/18 Principal diagnosis: Chest Pain Interval history: Patient denies chest pain and shortness of breath. Sitter is at the bedside. Objective Vital Signs Temp Pulse Resp BP BP Pulse Ox 12/17/18 08:00 98.1 F 51 L 18 120/54 97 12/17/18 05:38 88 18 120/76 99 12/17/18 05:35 98.3 F 18 120/76 12/17/18 04:00 56 L 12/17/18 02:12 98.4 F 51 L 18 99/63 97 12/16/18 22:00 18 12/16/18 21:50 98.5 F 50 L 20 132/80 98 12/16/18 17:05 97 F L 58 L 16 130/81 98 12/16/18 16:15 97.8 F 53 L 17 132/81 100 12/16/18 15:45 97.4 F L 57 L 16 146/83 99 12/16/18 15:15 53 L 17 140/88 100 12/16/18 15:00 97.8 F 49 L 17 127/86 99 12/16/18 14:45 97 F L 47 L 19 125/82 99 12/16/18 14:30 97.9 F 50 L 19 119/85 99 12/16/18 12:00 53 L - Physical Examination General: No Apparent Distress HEENT: Positive: PERRL Neck: Positive: trachea midline Cardiac: Positive: Reg Rate and Rhythm Lungs: Positive: Decreased Breath Sounds Neuro: Positive: Grossly Intact Extremities: Present: normal
--- NOTE | 2018-12-17 11:26 | Discharge Summary ---
Providers - Providers Date of Admission: 12/13/18 22:27 Attending physician: BENNIE LUCAS MD 12/14/18 12:03 Consult to Mental Health [CONS] Urgent Reason For Exam: suicidal ideation Place consult to:: mental health Notified:: Sha JIMENEZ Phone number called:: Ext. [phone] Was contact made?: Yes If yes, spoke with:: [facility] Time called:: 12:05 12/16/18 14:09 Consult to Cardiac Rehabilitation [CONS] Routine Reason For Exam: Cardiac Rehab Evaluation [facility] Reason for admission: chest pain Condition: Stable Hospital course: 58 year old male presenting with chest pain radiating to the right arm associated with shortness of breath, nausea, diaphoresis. Pain is pressure like. Pain is non-exertional. History of PCI in [place] in the setting of [place]. No follow-up in [place]. Patient also reported SI stating that his and daughter last year and he has been depressed. he reportted attempt suicide last year by overdosing on pills. He denies HI's and AVH's. He denies a poor appetite, but acknowledged erratic sleep. He denies recreational drug use and alcohol consumption. He stated that he experienced an unusual erection recently. The patient takes Trazodone. Chest pain - Cardiac enzymes were negative - Stress test abnormal - Cardiology consulted and did a cardiac cath showed nonobstructive atherosclerosis, no stent was seen - Cardiology cleared him for discharge Bipolar disorder, depression - Continue home medication Suicidal ideation Patient admitted to Inpatient psych facility Disposition: [id number]/[place]-[id number] PSY HOSP/PSY UNIT Time spent for discharge: 35 mins Core Measure Documentation - Palliative Care Palliative Care/ Comfort Measures: Not Applicable - Core Measures Any of the following diagnoses?: none - VTE Discharge Requirements Deep Vein Thrombosis/Pulmonary Embolism Present on Admission: No Exam - Physical Exam Narrative exam: VITAL SIGNS: Reviewed. GENERAL: The patient appeared well nourished and normally developed. Vital signs as documented. HEAD: No signs of head trauma. EYES: Pupils are equal. Extraocular motions intact. EARS: Hearing grossly intact. MOUTH: Oropharynx is normal. NECK: No adenopathy, no JVD. CHEST: Chest with clear breath sounds bilaterally. No wheezes, rales, or rhonchi. CARDIAC: Bradycardic otherwise regular rhythm. S1 and S2, without murmurs, gallops, or rubs. VASCULAR: No Edema. Peripheral pulses normal and equal in all extremities. ABDOMEN: Soft, without detectable tenderness. No sign of distention. No rebound or guarding, and no masses palpated. Bowel Sounds normal. MUSCULOSKELETAL: Good range of motion of all major joints. Extremities without clubbing, cyanosis or edema. NEUROLOGIC EXAM: Alert and oriented x 3. No focal sensory or strength deficits. Speech normal. Follows commands. PSYCHIATRIC: Mood normal. SKIN: No rash or lesions. - Constitutional Vitals: Temp Pulse Resp BP Pulse Ox 98.1 F 51 L 18 120/54 97 12/17/18 08:00 12/17/18 08:00 12/17/18 08:00 12/17/18 08:00 12/17/18 08:00 Plan Activity: advance as tolerated, fall precautions Diet: low fat Special Instructions: record daily BP diary Follow up with: JOSE ALFREDO WATKINSWICHITA MD GALILEO [Primary Care Provider] - 3-5 Days Prescriptions: AtorvaSTATin [Lipitor] 40 mg PO QHS #30 tablet amLODIPine [Norvasc] 2.5 mg PO QDAY #30 tablet Clopidogrel [Plavix] 75 mg PO QDAY #30 tablet ISOSORBIDE MONOnitrate [Imdur ER] 30 mg PO QDAY #30 tablet Metoprolol Tartrate 25 mg PO DAILY #30 tablet
--- NOTE | 2018-12-17 13:31 | Progress Note ---
Subjective - Reason for Consult Consult date: 12/17/18 Reason for consult: Psychiatry Folow-up - Chief Complaint Chief complaint: "Hello" 58-year-old AA male who presented to the ER fro chest pain. Psychiatry was consulted to see the patient for SI's. Today the patient is calm and cooperative during the assessment. He stated that he "somewhat" has a will to live. He stated that he spoke with family yesterday that put in him good "spirits." He stated that he slept well last night. He denies HI's and AVH's. He denies any side effects of his medications. Mental Status Exam - Vital signs Last Vital Signs Temp 98.5 F 12/17/18 12:44 Pulse 49 L 12/17/18 12:44 Resp 18 12/17/18 12:44 BP 99/60 12/17/18 12:44 Pulse Ox 99 12/17/18 12:44 - Exam Narrative exam: MSE: Appearance: calm, cooperative Behavior: regular eye contact Speech: regular rate and tone Mood: "better" Affect: congruent to mood Thought Process: circumstantial Thought Content: denies HI's and AVH's Motor Activity: sitting up in bed Cognition: A/O x 3 Insight: fair Judgment: variable Assessment and Plan Impression: MDD, Severe Type. Today the patient is calm and cooperative during the assessment. DDx: R/O Bipolar DO Recommendation/Plan: Continue 1013. Increase Prozac to 20 mg PO daily for depression and continue Benadryl 25 mg PO HS for sleep. Discussed possible suicidality/medication induced danielle with the patient reference Prozac. Dispo: The patient will be referred to inpatient psy services. Staffed with Dr Duke Parikh.
[2018-12-17] MEDS ORDERED: PROzac PO ONE (14:00)
--- NOTE | 2018-12-17 14:44 | Progress Note ---
Assessment and Plan Assessment and plan: Patient is a 58-year-old male past medical history of CAD who presented to the hospital with complaint of chest pain that has been going on for just a few hours prior to presentation when associated radiation to the right, shortness of breath nausea vomiting or diaphoresis. On admission the patient reported a history of PCI in [place] with stent placement which was subsequently recognized to have any stents. He is allergic to aspirin. He did have evaluation by cardiology with Martín from cardiology to consult on anti- ischemic medications current medication for cardiac catheterization. Patient currently is medically stable for discharge to psych as he also has bipolar disorder and did report suicidal ideation. Discharge Diagnosis Chest pain - Cardiac enzymes were negative - Stress test abnormal - Cardiology consulted and recommended anti ischemic medications and will do cardiac cath on sunday Bipolar disorder, depression - Continue home medication - Prozac and nataleedrly per willian Suicidal ideation - Willian following - Mental health consulted DVT prophylaxis - On heparin Disposition - Continue inpatient care. History Interval history: Patient's and examined this morning in no acute distress resting comfortably denies any chest pain. Hospitalist Physical - Physical exam Narrative exam: VITAL SIGNS: Reviewed. GENERAL: The patient appeared well nourished and normally developed. Vital signs as documented. HEAD: No signs of head trauma. EYES: Pupils are equal. Extraocular motions intact. EARS: Hearing grossly intact. MOUTH: Oropharynx is normal. NECK: No adenopathy, no JVD. CHEST: Chest with clear breath sounds bilaterally. No wheezes, rales, or rhonchi. CARDIAC: Bradycardic otherwise regular rhythm. S1 and S2, without murmurs, gallops, or rubs. VASCULAR: No Edema. Peripheral pulses normal and equal in all extremities. ABDOMEN: Soft, without detectable tenderness. No sign of distention. No rebound or guarding, and no masses palpated. Bowel Sounds normal. MUSCULOSKELETAL: Good range of motion of all major joints. Extremities without clubbing, cyanosis or edema. NEUROLOGIC EXAM: Alert and oriented x 3. No focal sensory or strength deficits. Speech normal. Follows commands. PSYCHIATRIC: Mood normal. SKIN: No rash or lesions. - Constitutional Vitals: Temp Pulse Resp BP Pulse Ox 98.5 F 49 L 18 99/60 99 12/17/18 12:44 12/17/18 12:44 12/17/18 12:44 12/17/18 12:44 12/17/18 12:44 General appearance: Present: no acute distress Results - Labs CBC & Chem 7: 12/13/18 20:24 12/16/18 05:06 Labs: Laboratory Last Values WBC 6.4 K/mm3 (4.5-11.0) 12/13/18 20:24 RBC 5.15 M/mm3 (3.65-5.03) H 12/13/18 20:24 Hgb 13.8 gm/dl (11.8-15.2) 12/13/18 20:24 Hct 42.7 % (35.5-45.6) 12/13/18 20:24 MCV 83 fl (84-94) L 12/13/18 20:24 MCH 27 pg (28-32) L 12/13/18 20:24 MCHC 32 % (32-34) 12/13/18 20:24 RDW 15.3 % (13.2-15.2) H 12/13/18 20:24 Plt Count 383 K/mm3 (140-440) 12/13/18 20:24 Lymph % (Auto) 30.0 % (13.4-35.0) 12/13/18 20:24 [place] % (Auto) 8.0 % (0.0-7.3) H 12/13/18 20:24 Eos % (Auto) 4.1 % (0.0-4.3) 12/13/18 20:24 Baso % (Auto) 1.2 % (0.0-1.8) 12/13/18 20:24 Lymph # 1.9 K/mm3 (1.2-5.4) 12/13/18 20:24 [place] # 0.5 K/mm3 (0.0-0.8) 12/13/18 20:24 Eos # 0.3 K/mm3 (0.0-0.4) 12/13/18 20:24 Baso # 0.1 K/mm3 (0.0-0.1) 12/13/18 20:24 Seg Neutrophils % 56.7 % (40.0-70.0) 12/13/18 20:24 Seg Neutrophils # 3.6 K/mm3 (1.8-7.7) 12/13/18 20:24 PT 15.1 Sec. (12.2-14.9) H 12/16/18 05:06 INR 1.12 (0.87-1.13) 12/16/18 05:06 APTT 20.2 Sec. (24.2-36.6) L 12/16/18 05:06 Sodium 143 mmol/L (137-145) 12/16/18 05:06 Potassium 4.1 mmol/L (3.6-5.0) 12/16/18 05:06 Chloride 104.0 mmol/L (98-107) 12/16/18 05:06 Carbon Dioxide 31 mmol/L (22-30) H 12/16/18 05:06 Anion Gap 12 mmol/L 12/16/18 05:06 BUN 10 mg/dL (9-20) 12/16/18 05:06 Creatinine 1.2 mg/dL (0.8-1.5) 12/16/18 05:06 Estimated GFR > 60 ml/min 12/16/18 05:06 BUN/Creatinine Ratio 8 % 12/16/18 05:06 Glucose 88 mg/dL (75-100) 12/16/18 05:06 POC Glucose 82 (70-105) 12/16/18 05:54 Calcium 8.5 mg/dL (8.4-10.2) 12/16/18 05:06 Total Bilirubin 0.40 mg/dL (0.1-1.2) 12/14/18 12:13 AST 19 units/L (5-40) 12/14/18 12:13 ALT 16 units/L (7-56) 12/14/18 12:13 Alkaline Phosphatase 37 units/L (35-129) 12/14/18 12:13 Total Creatine Kinase 86 units/L (55-170) 12/14/18 06:04 CK-MB (CK-2) 1.9 ng/mL (0.0-4.0) 12/14/18 06:04 CK-MB (CK-2) Rel Index 2.2 (0-4) 12/14/18 06:04 Troponin T < 0.010 ng/mL (0.00-0.029) 12/14/18 06:04 Total Protein 7.3 g/dL (6.3-8.2) 12/14/18 12:13 Albumin 4.3 g/dL (3.9-5) 12/14/18 12:13 Albumin/Globulin Ratio 1.4 % 12/14/18 12:13 Triglycerides 186 mg/dL (2-149) H 12/15/18 13:48 Cholesterol 123 mg/dL (50-199) 12/15/18 13:48 LDL Cholesterol Direct 73 mg/dL (50-130) 12/15/18 13:48 HDL Cholesterol 32 mg/dL (40-59) L 12/15/18 13:48 Cholesterol/HDL Ratio 3.84 % 12/15/18 13:48
[2018-12-17] MEDS: TYLENOL PO PRN (18:30)
[2018-12-17] MEDS: BENADRYL PO SCH (21:31)
[2018-12-18] MEDS: HEPARIN SUB-Q SCH ×2 (05:53→17:36)
[2018-12-18] MEDS: NORVASC PO SCH (09:49)
[2018-12-18] MEDS: ZESTRIL PO SCH (09:49)
[2018-12-18] MEDS: PLAVIX PO SCH (09:49)
[2018-12-18] MEDS: IMDUR PO SCH (09:49)
[2018-12-18] MEDS ORDERED: PROzac PO SCH (10:00)
[2018-12-18 13:29] LABS: Bilirubin,Urine NEG (Negative); Blood,Urine NEG (Negative); Color,Urine Yellow (Yellow); Hyaline Casts,Urine 1 /LPF; Mucus,Urine FEW /HPF; Protein,Urine <15 mg/dL mg/dL (Negative); Urobilinogen,Urine < 2.0 mg/dL (<2.0)
[2018-12-18 16:15] LABS: Amphetamine Screen,Urine PRESUMPTIVE NEGATIVE; Benzodiazepines Screen,Urine PRESUMPTIVE NEGATIVE; Cannabinoid Screen,Urine PRESUMPTIVE NEGATIVE; Cocaine Screen,Urine PRESUMPTIVE NEGATIVE; Methadone Screen,Urine PRESUMPTIVE NEGATIVE; Opiate Screen,Urine PRESUMPTIVE NEGATIVE
[2018-12-18] MEDS: TYLENOL PO PRN ×2 (17:36→21:00)
--- NOTE | 2018-12-18 17:44 | Progress Note ---
Assessment and Plan Assessment and plan: Patient is a 58-year-old male past medical history of CAD who presented to the hospital with complaint of chest pain that has been going on for just a few hours prior to presentation when associated radiation to the right, shortness of breath nausea vomiting or diaphoresis. On admission the patient reported a history of PCI in [place] with stent placement which was subsequently recognized to have any stents. He is allergic to aspirin. He did have evaluation by cardiology with Martín from cardiology to consult on anti- ischemic medications current medication for cardiac catheterization. Patient currently is medically stable for discharge to psych as he also has bipolar disorder and did report suicidal ideation. Discharge Diagnosis Chest pain - Cardiac enzymes were negative - Stress test abnormal - Cardiology consulted and recommended anti ischemic medications - Medically cleared awaiting willian Bipolar disorder, depression - Continue home medication - Prozac and benedrly per willian Suicidal ideation - Willian following - Mental health consulted DVT prophylaxis - On heparin Disposition - Continue inpatient care. History Interval history: Patient seen and examined this morning in no acute distress resting comfortably denies any chest pain. Hospitalist Physical - Physical exam Narrative exam: VITAL SIGNS: Reviewed. GENERAL: The patient appeared well nourished and normally developed. Vital signs as documented. HEAD: No signs of head trauma. EYES: Pupils are equal. Extraocular motions intact. EARS: Hearing grossly intact. MOUTH: Oropharynx is normal. NECK: No adenopathy, no JVD. CHEST: Chest with clear breath sounds bilaterally. No wheezes, rales, or rhonchi. CARDIAC: Bradycardic otherwise regular rhythm. S1 and S2, without murmurs, gallops, or rubs. VASCULAR: No Edema. Peripheral pulses normal and equal in all extremities. ABDOMEN: Soft, without detectable tenderness. No sign of distention. No rebound or guarding, and no masses palpated. Bowel Sounds normal. MUSCULOSKELETAL: Good range of motion of all major joints. Extremities without clubbing, cyanosis or edema. NEUROLOGIC EXAM: Alert and oriented x 3. No focal sensory or strength deficits. Speech normal. Follows commands. PSYCHIATRIC: Mood normal. SKIN: No rash or lesions. - Constitutional Vitals: Temp Pulse Resp BP Pulse Ox 98.6 F 59 L 18 108/68 100 12/18/18 16:08 12/18/18 16:12/18/18 16:12/18/18 16:19 16:08 General appearance: Present: no acute distress Results - Labs CBC & Chem 7: 12/13/18 20:24 12/16/18 05:06 Labs: Laboratory Last Values WBC 6.4 K/mm3 (4.5-11.0) 12/13/18 20:24 RBC 5.15 M/mm3 (3.65-5.03) H 12/13/18 20:24 Hgb 13.8 gm/dl (11.8-15.2) 12/13/18 20:24 Hct 42.7 % (35.5-45.6) 12/13/18 20:24 MCV 83 fl (84-94) L 12/13/18 20:24 MCH 27 pg (28-32) L 12/13/18 20:24 MCHC 32 % (32-34) 12/13/18 20:24 RDW 15.3 % (13.2-15.2) H 12/13/18 20:24 Plt Count 383 K/mm3 (140-440) 12/13/18 20:24 Lymph % (Auto) 30.0 % (13.4-35.0) 12/13/18 20:24 [place] % (Auto) 8.0 % (0.0-7.3) H 12/13/18 20:24 Eos % (Auto) 4.1 % (0.0-4.3) 12/13/18 20:24 Baso % (Auto) 1.2 % (0.0-1.8) 12/13/18 20:24 Lymph # 1.9 K/mm3 (1.2-5.4) 12/13/18 20:24 [place] # 0.5 K/mm3 (0.0-0.8) 12/13/18 20:24 Eos # 0.3 K/mm3 (0.0-0.4) 12/13/18 20:24 Baso # 0.1 K/mm3 (0.0-0.1) 12/13/18 20:24 Seg Neutrophils % 56.7 % (40.0-70.0) 12/13/18 20:24 Seg Neutrophils # 3.6 K/mm3 (1.8-7.7) 12/13/18 20:24 PT 15.1 Sec. (12.2-14.9) H 12/16/18 05:06 INR 1.12 (0.87-1.13) 12/16/18 05:06 APTT 20.2 Sec. (24.2-36.6) L 12/16/18 05:06 Sodium 143 mmol/L (137-145) 12/16/18 05:06 Potassium 4.1 mmol/L (3.6-5.0) 12/16/18 05:06 Chloride 104.0 mmol/L (98-107) 12/16/18 05:06 Carbon Dioxide 31 mmol/L (22-30) H 12/16/18 05:06 Anion Gap 12 mmol/L 12/16/18 05:06 BUN 10 mg/dL (9-20) 12/16/18 05:06 Creatinine 1.2 mg/dL (0.8-1.5) 12/16/18 05:06 Estimated GFR > 60 ml/min 12/16/18 05:06 BUN/Creatinine Ratio 8 % 12/16/18 05:06 Glucose 88 mg/dL (75-100) 12/16/18 05:06 POC Glucose 82 (70-105) 12/16/18 05:54 Calcium 8.5 mg/dL (8.4-10.2) 12/16/18 05:06 Total Bilirubin 0.40 mg/dL (0.1-1.2) 12/14/18 12:13 AST 19 units/L (5-40) 12/14/18 12:13 ALT 16 units/L (7-56) 12/14/18 12:13 Alkaline Phosphatase 37 units/L (35-129) 12/14/18 12:13 Total Creatine Kinase 86 units/L (55-170) 12/14/18 06:04 CK-MB (CK-2) 1.9 ng/mL (0.0-4.0) 12/14/18 06:04 CK-MB (CK-2) Rel Index 2.2 (0-4) 12/14/18 06:04 Troponin T < 0.010 ng/mL (0.00-0.029) 12/14/18 06:04 Total Protein 7.3 g/dL (6.3-8.2) 12/14/18 12:13 Albumin 4.3 g/dL (3.9-5) 12/14/18 12:13 Albumin/Globulin Ratio 1.4 % 12/14/18 12:13 Triglycerides 186 mg/dL (2-149) H 12/15/18 13:48 Cholesterol 123 mg/dL (50-199) 12/15/18 13:48 LDL Cholesterol Direct 73 mg/dL (50-130) 12/15/18 13:48 HDL Cholesterol 32 mg/dL (40-59) L 12/15/18 13:48 Cholesterol/HDL Ratio 3.84 % 12/15/18 13:48 Urine Color Yellow (Yellow) 12/18/18 Unknown Urine Turbidity Clear (Clear) 12/18/18 Unknown Urine pH 6.0 (5.0-7.0) 12/18/18 Unknown Ur Specific [place] 1.011 (1.003-1.030) 12/18/18 Unknown Urine Protein <15 mg/dl mg/dL (Negative) 12/18/18 Unknown Urine Glucose (UA) Neg mg/dL (Negative) 12/18/18 Unknown Urine Ketones Neg mg/dL (Negative) 12/18/18 Unknown Urine Blood Neg (Negative) 12/18/18 Unknown Urine Nitrite Neg (Negative) 12/18/18 Unknown Urine Bilirubin Neg (Negative) 12/18/18 Unknown Urine Urobilinogen < 2.0 mg/dL (<2.0) 12/18/18 Unknown Ur Leukocyte Esterase Neg (Negative) 12/18/18 Unknown Urine WBC (Auto) 1.0 /HPF (0.0-6.0) 12/18/18 Unknown Urine RBC (Auto) 3.0 /HPF (0.0-6.0) 12/18/18 Unknown Hyaline Casts 1 /LPF 12/18/18 Unknown Urine Mucus Few /HPF 12/18/18 Unknown Urine Opiates Screen Presumptive negative 12/18/18 13:28 Urine Methadone Screen Presumptive negative 12/18/18 13:28 Ur Barbiturates Screen Presumptive negative 12/18/18 13:28 Ur Phencyclidine Scrn Presumptive negative 12/18/18 13:28 Ur Amphetamines Screen Presumptive negative 12/18/18 13:28 U Benzodiazepines Scrn Presumptive negative 12/18/18 13:28 Urine Cocaine Screen Presumptive negative 12/18/18 13:28 U Marijuana (THC) Screen Presumptive negative 12/18/18 13:28 Drugs of Abuse Note Disclamer 12/18/18 13:28
[2018-12-18] MEDS: BENADRYL PO SCH (21:00)
[2018-12-19] MEDS: HEPARIN SUB-Q SCH ×2 (05:55→17:10)
[2018-12-19] MEDS: ZESTRIL PO SCH (09:33)
[2018-12-19] MEDS: PLAVIX PO SCH (09:33)
[2018-12-19] MEDS: IMDUR PO SCH (09:34)
[2018-12-19] MEDS: NORVASC PO SCH (09:34)
--- NOTE | 2018-12-19 10:14 | Progress Note ---
Subjective - Reason for Consult Consult date: 12/19/18 Reason for consult: Psychiatry Follow-up - Chief Complaint Chief complaint: "I'm depressed" 58-year-old AA male who presented to the ER fro chest pain. Psychiatry was consulted to see the patient for SI's. Today the patient is calm and cooperative during the assessment. He stated that is more depressed today, but cannot explain why. He continues to endorse SI's, but cannot confirm or deny a suicide plan. He denies HI's and AVH's. He denies any side effects of his medications. Mental Status Exam - Vital signs Last Vital Signs Temp 97.6 F 12/19/18 08:34 Pulse 51 L 12/19/18 08:34 Resp 18 12/19/18 08:42 BP 119/83 12/19/18 08:34 Pulse Ox 99 12/19/18 08:42 - Exam Narrative exam: MSE: Appearance: calm, cooperative Behavior: regular eye contact Speech: regular rate and tone Mood: "depressed" Affect: congruent to mood Thought Process: circumstantial Thought Content: denies HI's and AVH's Motor Activity: sitting up in bed Cognition: A/O x 3 Insight: fair Judgment: variable Assessment and Plan Impression: MDD, Severe Type. Today the patient is calm and cooperative during the assessment. DDx: R/O Bipolar DO Recommendation/Plan: Continue 1013 and Prozac to 20 mg PO daily for depression and Benadryl 25 mg PO HS for sleep. Discussed possible suicidality/medication induced danielle with the patient reference Prozac. Dispo: The patient will be referred to inpatient psy services. Staffed with Dr Frazier.
[2018-12-19] MEDS: TYLENOL PO PRN ×2 (17:13→21:25)
--- NOTE | 2018-12-19 17:25 | Progress Note ---
Assessment and Plan Assessment and plan: Patient is a 58-year-old male past medical history of CAD who presented to the hospital with complaint of chest pain that has been going on for just a few hours prior to presentation when associated radiation to the right, shortness of breath nausea vomiting or diaphoresis. On admission the patient reported a history of PCI in [place] with stent placement which was subsequently recognized to have any stents. He is allergic to aspirin. He did have evaluation by cardiology with Martín from cardiology to consult on anti- ischemic medications current medication for cardiac catheterization. Patient currently is medically stable for discharge to [facility] as he also has bipolar disorder and did report suicidal ideation. Discharge Diagnosis Chest pain - Cardiac enzymes were negative - Stress test abnormal - Cardiology consulted and recommended anti ischemic medications - Medically cleared awaiting willian Bipolar disorder, depression - Continue home medication - Prozac and benedrly per willian Suicidal ideation - Willian following - Mental health consulted DVT prophylaxis - On heparin Disposition - Continue inpatient care. Transfer to [facility] History Interval history: Patient seen and examined this morning in no acute distress resting comfortably denies any chest pain. continues to state that he is under lots of stress Hospitalist Physical - Physical exam Narrative exam: VITAL SIGNS: Reviewed. GENERAL: The patient appeared well nourished and normally developed. Vital signs as documented. HEAD: No signs of head trauma. EYES: Pupils are equal. Extraocular motions intact. EARS: Hearing grossly intact. MOUTH: Oropharynx is normal. NECK: No adenopathy, no JVD. CHEST: Chest with clear breath sounds bilaterally. No wheezes, rales, or rhonchi. CARDIAC: Bradycardic otherwise regular rhythm. S1 and S2, without murmurs, gallops, or rubs. VASCULAR: No Edema. Peripheral pulses normal and equal in all extremities. ABDOMEN: Soft, without detectable tenderness. No sign of distention. No rebound or guarding, and no masses palpated. Bowel Sounds normal. MUSCULOSKELETAL: Good range of motion of all major joints. Extremities without clubbing, cyanosis or edema. NEUROLOGIC EXAM: Alert and oriented x 3. No focal sensory or strength deficits. Speech normal. Follows commands. PSYCHIATRIC: Mood normal. SKIN: No rash or lesions. - Constitutional Vitals: Temp Pulse Resp BP Pulse Ox 98.3 F 57 L 16 119/79 98 12/19/18 11:32 12/19/18 11:32 12/19/18 11:32 12/19/18 11:32 12/19/18 11:32 General appearance: Present: no acute distress Results - Labs CBC & Chem 7: 12/13/18 20:24 12/16/18 05:06 Labs: Laboratory Last Values WBC 6.4 K/mm3 (4.5-11.0) 12/13/18 20:24 RBC 5.15 M/mm3 (3.65-5.03) H 12/13/18 20:24 Hgb 13.8 gm/dl (11.8-15.2) 12/13/18 20:24 Hct 42.7 % (35.5-45.6) 12/13/18 20:24 MCV 83 fl (84-94) L 12/13/18 20:24 MCH 27 pg (28-32) L 12/13/18 20:24 MCHC 32 % (32-34) 12/13/18 20:24 RDW 15.3 % (13.2-15.2) H 12/13/18 20:24 Plt Count 383 K/mm3 (140-440) 12/13/18 20:24 Lymph % (Auto) 30.0 % (13.4-35.0) 12/13/18 20:24 [place] % (Auto) 8.0 % (0.0-7.3) H 12/13/18 20:24 Eos % (Auto) 4.1 % (0.0-4.3) 12/13/18 20:24 Baso % (Auto) 1.2 % (0.0-1.8) 12/13/18 20:24 Lymph # 1.9 K/mm3 (1.2-5.4) 12/13/18 20:24 [place] # 0.5 K/mm3 (0.0-0.8) 12/13/18 20:24 Eos # 0.3 K/mm3 (0.0-0.4) 12/13/18 20:24 Baso # 0.1 K/mm3 (0.0-0.1) 12/13/18 20:24 Seg Neutrophils % 56.7 % (40.0-70.0) 12/13/18 20:24 Seg Neutrophils # 3.6 K/mm3 (1.8-7.7) 12/13/18 20:24 PT 15.1 Sec. (12.2-14.9) H 12/16/18 05:06 INR 1.12 (0.87-1.13) 12/16/18 05:06 APTT 20.2 Sec. (24.2-36.6) L 12/16/18 05:06 Sodium 143 mmol/L (137-145) 12/16/18 05:06 Potassium 4.1 mmol/L (3.6-5.0) 12/16/18 05:06 Chloride 104.0 mmol/L (98-107) 12/16/18 05:06 Carbon Dioxide 31 mmol/L (22-30) H 12/16/18 05:06 Anion Gap 12 mmol/L 12/16/18 05:06 BUN 10 mg/dL (9-20) 12/16/18 05:06 Creatinine 1.2 mg/dL (0.8-1.5) 12/16/18 05:06 Estimated GFR > 60 ml/min 12/16/18 05:06 BUN/Creatinine Ratio 8 % 12/16/18 05:06 Glucose 88 mg/dL (75-100) 12/16/18 05:06 POC Glucose 82 (70-105) 12/16/18 05:54 Calcium 8.5 mg/dL (8.4-10.2) 12/16/18 05:06 Total Bilirubin 0.40 mg/dL (0.1-1.2) 12/14/18 12:13 AST 19 units/L (5-40) 12/14/18 12:13 ALT 16 units/L (7-56) 12/14/18 12:13 Alkaline Phosphatase 37 units/L (35-129) 12/14/18 12:13 Total Creatine Kinase 86 units/L (55-170) 12/14/18 06:04 CK-MB (CK-2) 1.9 ng/mL (0.0-4.0) 12/14/18 06:04 CK-MB (CK-2) Rel Index 2.2 (0-4) 12/14/18 06:04 Troponin T < 0.010 ng/mL (0.00-0.029) 12/14/18 06:04 Total Protein 7.3 g/dL (6.3-8.2) 12/14/18 12:13 Albumin 4.3 g/dL (3.9-5) 12/14/18 12:13 Albumin/Globulin Ratio 1.4 % 12/14/18 12:13 Triglycerides 186 mg/dL (2-149) H 12/15/18 13:48 Cholesterol 123 mg/dL (50-199) 12/15/18 13:48 LDL Cholesterol Direct 73 mg/dL (50-130) 12/15/18 13:48 HDL Cholesterol 32 mg/dL (40-59) L 12/15/18 13:48 Cholesterol/HDL Ratio 3.84 % 12/15/18 13:48 Urine Color Yellow (Yellow) 12/18/18 Unknown Urine Turbidity Clear (Clear) 12/18/18 Unknown Urine pH 6.0 (5.0-7.0) 12/18/18 Unknown Ur Specific [place] 1.011 (1.003-1.030) 12/18/18 Unknown Urine Protein <15 mg/dl mg/dL (Negative) 12/18/18 Unknown Urine Glucose (UA) Neg mg/dL (Negative) 12/18/18 Unknown Urine Ketones Neg mg/dL (Negative) 12/18/18 Unknown Urine Blood Neg (Negative) 12/18/18 Unknown Urine Nitrite Neg (Negative) 12/18/18 Unknown Urine Bilirubin Neg (Negative) 12/18/18 Unknown Urine Urobilinogen < 2.0 mg/dL (<2.0) 12/18/18 Unknown Ur Leukocyte Esterase Neg (Negative) 12/18/18 Unknown Urine WBC (Auto) 1.0 /HPF (0.0-6.0) 12/18/18 Unknown Urine RBC (Auto) 3.0 /HPF (0.0-6.0) 12/18/18 Unknown Hyaline Casts 1 /LPF 12/18/18 Unknown Urine Mucus Few /HPF 12/18/18 Unknown Urine Opiates Screen Presumptive negative 12/18/18 13:28 Urine Methadone Screen Presumptive negative 12/18/18 13:28 Ur Barbiturates Screen Presumptive negative 12/18/18 13:28 Ur Phencyclidine Scrn Presumptive negative 12/18/18 13:28 Ur Amphetamines Screen Presumptive negative 12/18/18 13:28 U Benzodiazepines Scrn Presumptive negative 12/18/18 13:28 Urine Cocaine Screen Presumptive negative 12/18/18 13:28 U Marijuana (THC) Screen Presumptive negative 12/18/18 13:28 Drugs of Abuse Note Disclamer 12/18/18 13:28
[2018-12-19] MEDS: BENADRYL PO SCH (21:27)
[2018-12-20] MEDS: HEPARIN SUB-Q SCH (06:17)
[2018-12-20] MEDS: PLAVIX PO SCH (09:38)
[2018-12-20] MEDS: IMDUR PO SCH (09:39)
[2018-12-20] MEDS: NORVASC PO SCH (09:39)
[2018-12-20] MEDS: ZESTRIL PO SCH (10:50)
[2018-12-20 12:01] VITALS: BP 136/84
== END 2018-12-20 12:57 | DRG 287 ==
LOC: ED 18:53 → 4A 22:27
PROVIDERS: ADMIT Internal Medicine; ATTEND Internal Medicine
PROC: 4A023N7 Measurement of Cardiac Sampling and Pressure, Left Heart, Percutaneous Approach (ICD-10-PCS; principal; 2018-12-16)
PROC: B2111ZZ Fluoroscopy of Multiple Coronary Arteries using Low Osmolar Contrast (ICD-10-PCS; 2018-12-16)
PROC: B2151ZZ Fluoroscopy of Left Heart using Low Osmolar Contrast (ICD-10-PCS; 2018-12-16)
DX: R07.9 Chest pain, unspecified (principal); R45.851 Suicidal ideations; F32.2 Major depressive disorder, single episode, severe without psychotic features; I25.10 Atherosclerotic heart disease of native coronary artery without angina pectoris; E78.5 Hyperlipidemia, unspecified; I10 Essential (primary) hypertension; G20 Parkinson's disease; Z79.899 Other long term (current) drug therapy; Z95.5 Presence of coronary angioplasty implant and graft; Z82.49 Family history of ischemic heart disease and other diseases of the circulatory system; Z88.6 Allergy status to analgesic agent
CPT/HCPCS: 36415; 71045; 78452; 80048; 80053; 80061; 80307; 81001; 82550; 82553; 82962; 84484; 85025; 85610; 85730; 93005; 93010; 93017; 93458; G0378; A9270-GY; A9502; C1760; C1894; J1644; J2250; J2785; J3010; J7030; J7040; Q9967